=== PATIENT | female | born 1995 | race Caucasian/White ===

== ENCOUNTER 2018-01-19 22:30 | Emergency (ER) | payer OTHER ==
[2018-01-19 22:38] VITALS: BP 113/72; PULSE 140; BMI 22.8
--- NOTE | 2018-01-19 23:25 | PDOC ---
History of Present Illness - General Chief Complaint: Cold Symptoms Stated Complaint: COLD SYMPTOMS Time Seen by Provider: 01/19/18 23:07 History Source: Patient Exam Limitations: No Limitations - History of Present Illness Initial Comments: 01/19/18 23:22 22 y/o F with no significant PMH who presents to the ED c/o fever and myalgias over the past 5-6 hours. As per pt, this afternoon, she developed a subjective fever a/w nausea and one episode of NBNB emesis. During this time, pt also endorsed generalized myalgia, chills, and dry cough. Pt states that her sx have no alleviating or exacerbating factors. Pt denies SOB, or changes in urinary or bowel function. PMH: denies PsxH: denies meds: denies allergies: NKDA FH: non-contributory SH: denies cigarette, alcohol, or recreational drug use Past History - Past Medical History Allergies/Adverse Reactions: Allergies Allergy/AdvReac Type Severity Reaction Status Date / Time No Known Allergies Allergy Verified 01/19/18 22:34 Home Medications: Ambulatory Orders Azithromycin [Zithromax 250mg Tablets -] 250 mg PO UTDICT #6 tab 11/25/15 Promethazine HCl [Phenergan Plain 6.25 MG/5 ML -] 5 ml PO TID #60 ml 11/25/15 Oseltamivir Phosphate [Tamiflu] 75 mg PO BID #10 capsule 01/20/18 COPD: No Other medical history: Pt denies - Immunization History Immunization Up to Date: Yes - Suicide/Smoking/Psychosocial Hx Smoking History: Never smoked Have you smoked in the past 12 months: No Information on smoking cessation initiated: No Hx Alcohol Use: No Drug/Substance Use Hx: No Substance Use Type: None Review of Systems - Review of Systems Able to Perform ROS?: Yes Is the patient limited Japanese proficient: No Constitutional: Yes: Chills, Fever Respiratory: Yes: Cough ABD/GI: Yes: Nausea, Vomiting Musculoskeletal: Yes: Muscle Weakness All Other Systems: Reviewed and Negative *Physical Exam - Vital Signs Last Vital Signs Temp Pulse Resp BP Pulse Ox 102.2 F H 140 H 20 113/72 98 01/19/18 22:35 01/19/18 22:35 01/19/18 22:35 01/19/18 22:35 01/19/18 22:35 - Physical Exam General Appearance: Yes: Nourished, Mild Distress HEENT: positive: EOMI, MADDI Neck: positive: Supple Respiratory/Chest: positive: Lungs Clear, Normal Breath Sounds Cardiovascular: positive: Regular Rhythm, S1, S2, Tachycardia Vascular Pulses: Dorsalis-Pedis (R): 2+, Doralis-Pedis (L): 2+ Gastrointestinal/Abdominal: positive: Normal Bowel Sounds, Soft Lymphatic: positive: Tenderness, Other (+cervical lymphadenopathy) Musculoskeletal: positive: Normal Inspection Extremity: positive: Normal Range of Motion 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 Possible differentials include influenza, PNA, URI. Will get CXR to r/o infiltrates/PNA. Pt tachycardic will give 1L NS and repeat with 2nd L if still tachy. Will order the following CBC with diff CMP Urine HCG CXR r/o infiltrates UA Tylenol 1000mg IV x 1 1 L NS 01/20/18 01:49 Pt labs WNL for d/c *DC/Admit/Observation/Transfer Diagnosis at time of Disposition: Influenza - Discharge Dispostion Disposition: HOME Condition at time of disposition: Stable Admit: No - Prescriptions Prescriptions: Oseltamivir Phosphate [Tamiflu] 75 mg PO BID #10 capsule - Referrals - Patient Instructions Printed Discharge Instructions: How to Avoid a Cold or Flu Additional Instructions: You were recently in the emergency room for the flu. We recommend that you get plenty of rest and drink lots of fluids. While you were here, you had labs done which were normal. Your chest x-ray was also normal. Please take the medication Tamiflu 75mg - two pills a day, one in the morning, one in the evening - for the next 5 days. We are sending this prescription to your pharmacy. If you develop any chest pain, or shortness of breath, please go to the hospital. We hope you feel better soon. - Post Discharge Activity
--- NOTE | 2018-01-19 23:27 | PDOC ---
Attending Attestation - ED Attending Attestation I have performed the following: I have examined & evaluated the patient, The case was reviewed & discussed with the resident, I agree w/resident's findings & plan - HPI HPI: 01/20/18 05:36 Pt comes with cough cold and URI and flu like symptoms. SHe appears ill. She is tachycardic, febrile and dry. - Physicial Exam PE: 01/20/18 05:37 Agree with resident exam. - Medical Decision Making 01/20/18 05:37 Hydration; antipyretics. Pt feels better with treatment in the ER. CXR is normal. Pt will be treated with Tamiflu and she will be asked to follow with her PMD or with clinic as needed. Return for worsening symptoms.
[2018-01-19] MEDS ORDERED: SODIUM CHLORIDE 1,000 ML IV STA (23:29)
[2018-01-19] MEDS ORDERED: ACETAMINOPHEN 1000 MG/100 ML VIAL (NON FORMULARY) IVPB ONE (23:31)
[2018-01-19] MEDS ORDERED: ACETAMINOPHEN INJECTION 100 ML IVPB ONE (23:56)
[2018-01-20 00:33] LABS: BASO % 0.5 % (0-2.0); EOS % 0.1 % (0-4.5); HEMATOCRIT 35.7 % (32.4-45.2); HEMOGLOBIN 12.1 GM/dL (10.7-15.3); LYMPH % 13.1 % (8-40); MCH 28.8 pg (25.7-33.7); MCHC 33.9 g/dl (32.0-36.0); MEAN CELL VOLUME 84.8 fl (80-96); MEAN PLT VOLUME 8.6 fl (7.5-11.1); MONO % 7.3 % (3.8-10.2); PLATELET COUNT 234 K/MM3 (134-434); RBC 4.21 M/mm3 (3.60-5.2); RDW 13.5 % (11.6-15.6); WHITE BLOOD COUNT 8.5 K/mm3 (4.0-10.0)
[2018-01-20] MEDS ORDERED: OSELTAMIVIR PHOSPHATE 75 MG CAPSULE PO ONE (00:57)
[2018-01-20 01:16] LABS: ALBUMIN 4.1 g/dl (3.4-5.0); ALK PHOS 70 U/L (45-117); ANION GAP 12 (8-16); BILIRUBIN,TOTAL 1.2 mg/dL (0.2-1.0); BLOOD UREA NITROGEN 7 mg/dL (7-18); CALCIUM 8.9 mg/dL (8.5-10.1); CHLORIDE 102 mmol/L (98-107); CO2 22 mmol/L (21-32); CREATININE 0.7 mg/dL (0.55-1.02); GLUCOSE,RANDOM 103 mg/dL (74-106); POTASSIUM 3.6 mmol/L (3.5-5.1); SGOT/AST 13 U/L (15-37); SGPT/ALT 15 U/L (12-78); SODIUM 136 mmol/L (136-145); TOT PROT 7.7 g/dl (6.4-8.2)
[2018-01-20] MEDS ORDERED: OSELTAMIVIR PHOSPHATE 75 MG CAPSULE ONE (01:28)
[2018-01-20 01:46] LABS: URINE APPEARANCE CLEAR; URINE BILIRUBIN NEGATIVE (NEGATIVE); URINE BLOOD NEGATIVE (NEGATIVE); URINE COLOR LTYELLOW; URINE GLUCOSE (UA) NEGATIVE (NEGATIVE); URINE KETONE NEGATIVE (NEGATIVE); URINE LEUK ESTERASE NEGATIVE (NEGATIVE); URINE NITRITE NEGATIVE (NEGATIVE); URINE PROTEIN NEGATIVE (NEGATIVE)
[2018-01-20 02:03] VITALS: TEMP 98.6
== END 2018-01-20 02:33 | disposition home or self-care (01) ==
LOC: JER 22:30
PROC: 3E033NZ Introduction of Analgesics, Hypnotics, Sedatives into Peripheral Vein, Percutaneous Approach (ICD-10-PCS; principal; 2018-01-19)
DX: J11.2 Influenza due to unidentified influenza virus with gastrointestinal manifestations (principal)
CPT/HCPCS: 36415; 71046-TC-FY; 80053; 81003; 84703; 85025; 99281-25

== ENCOUNTER 2018-09-08 14:31 | Inpatient (IN) | payer MEDICARE, OTHER ==
--- NOTE | 2018-09-08 15:21 | PDOC ---
Rapid Medical Evaluation Chief Complaint: Pain, Acute Time Seen by Provider: 09/08/18 15:12 Medical Evaluation: Allergies Allergy/AdvReac Type Severity Reaction Status Date / Time No Known Allergies Allergy Verified 01/19/18 22:34 09/08/18 15:16 I have performed a brief in-person evaluation of this patient. The patient presents with a chief complaint of: abdominal pains, diarrhea, fever and vomiting for 2 weeks which has been worsening in the last 3 days. last fever 101.8F yesterday. no fever today Pertinent physical exam findings: A&O x 3. mild epigastric tenderness I have ordered the following: CBC/ CMP/UA/ HCG/urine culture The patient will proceed to the ED for further evaluation. Discharge Disposition - Diagnosis Diarrhea Qualifiers: Diarrhea type: unspecified type Qualified Code(s): R19.7 - Diarrhea, unspecified - Referrals - Patient Instructions - Post Discharge Activity
[2018-09-08 16:10] LABS: BASO % 0.7 % (0-2.0); EOS % 1.7 % (0-4.5); HEMOGLOBIN 12.5 GM/dL (10.7-15.3); LYMPH % 49.5 % (8-40); MCH 27.6 pg (25.7-33.7); MCHC 32.7 g/dl (32.0-36.0); MEAN CELL VOLUME 84.2 fl (80-96); MEAN PLT VOLUME 7.9 fl (7.5-11.1); MONO % 10.3 % (3.8-10.2); NEUT % 37.8 % (42.8-82.8); PLATELET COUNT 287 K/MM3 (134-434); RBC 4.52 M/mm3 (3.60-5.2); WHITE BLOOD COUNT 4.5 K/mm3 (4.0-10.0)
[2018-09-08 16:33] LABS: ALBUMIN 4.7 g/dl (3.4-5.0); ALK PHOS 59 U/L (45-117); ANION GAP 4 MMOL/L (8-16); BILIRUBIN,TOTAL 0.7 mg/dL (0.2-1); BLOOD UREA NITROGEN 9 mg/dL (7-18); CALCIUM 9.9 mg/dL (8.5-10.1); CHLORIDE 105 mmol/L (98-107); CO2 28 mmol/L (21-32); CREATININE 0.6 mg/dL (0.55-1.3); GLUCOSE,RANDOM 83 mg/dL (74-106); POTASSIUM 4.1 mmol/L (3.5-5.1); SGOT/AST 13 U/L (15-37); SGPT/ALT 21 U/L (13-61); SODIUM 137 mmol/L (136-145); TOT PROT 8.3 g/dl (6.4-8.2)
[2018-09-08 17:03] LABS: URINE APPEARANCE CLEAR; URINE BILIRUBIN NEGATIVE (<2.0 mg/dL); URINE COLOR LTYELLOW; URINE GLUCOSE (UA) NEGATIVE (NEGATIVE); URINE KETONE NEGATIVE (NEGATIVE); URINE LEUK ESTERASE NEGATIVE (NEGATIVE); URINE NITRITE NEGATIVE (NEGATIVE); URINE PROTEIN NEGATIVE (NEGATIVE); URINE UROBILINOGEN NEGATIVE mg/dL (0.2-1.0)
--- NOTE | 2018-09-08 17:56 | PDOC ---
History of Present Illness <Mirna Murray - Last Filed: 09/08/18 21:53> - History of Present Illness Initial Comments: 22yo F with PMH of chronic diarrhea presenting with bloody diarrhea, fever, chills, abdominal pain, nausea, and vomiting. Patient reports that she has had chronic diarrhea for the past 3 years. She has been worked up by a GI doctor whose name she does not remember in [place], but she has not seen him for some time. Patient presents today because she noticed blood in the toilet bowl and also when she was wiping after a bowel movement. She has had fever and chills for the past three days. Endorses abdominal pain that she has at baseline when she has a bowel movement. Denies sick contacts, recent travel, or unusual foods. <Maria C Martin - Last Filed: 09/10/18 00:33> - General Chief Complaint: Pain, Acute Stated Complaint: DIARRHEA Time Seen by Provider: 09/08/18 15:12 Past History <Mirna Murray - Last Filed: 09/08/18 21:53> - Past Medical History COPD: No - Immunization History Immunization Up to Date: Yes - Suicide/Smoking/Psychosocial Hx Smoking History: Never smoked Have you smoked in the past 12 months: No Hx Alcohol Use: No Drug/Substance Use Hx: No Substance Use Type: None <Maria C Martin - Last Filed: 09/10/18 00:33> - Past Medical History Allergies/Adverse Reactions: Allergies Allergy/AdvReac Type Severity Reaction Status Date / Time No Known Allergies Allergy Verified 01/19/18 22:34 Home Medications: Ambulatory Orders NK [No Known Home Medication] 09/08/18 Review of Systems - Review of Systems Comments:: Constitutional: +fever, +chills Cardiovascular: no chest pain, no palpitations Respiratory: no cough, no shortness of breath Gastrointestinal: +abdominal pain, +nausea, +vomiting, +diarrhea Genitourinary: no dysuria, no frequency Musculoskeletal: no myalgia, no arthralgia Skin: no rash, no itching Neurologic: no headache, no dizziness <Maria C Martin - Last Filed: 09/10/18 00:33> *Physical Exam - Vital Signs Last Vital Signs Temp Pulse Resp BP Pulse Ox 98.5 F 88 18 115/73 100 09/08/18 15:11 09/08/18 15:11 09/08/18 15:11 09/08/18 15:11 09/08/18 15:11 <Mirna Murray - Last Filed: 09/08/18 21:53> - Vital Signs Last Vital Signs Temp Pulse Resp BP Pulse Ox 98.5 F 88 18 115/73 100 09/08/18 15:11 09/08/18 15:11 09/08/18 15:11 09/08/18 15:11 09/08/18 15:11 - Physical Exam Comments: General: Awake, alert, and fully oriented, in no acute distress Head: no signs of trauma Eyes: EOMI, sclera anicteric ENT: Moist mucus membranes Neck: Normal ROM, supple Lungs: Lungs clear, Normal breath sounds Cardio: Regular rhythm, S1 and S2 present Abdomen: Tender to palpation in epigastrium with rebound, Soft, nondistended; No guarding, no masses Extremities: Normal range of motion, Distal pulses present SKIN: Warm, Dry, normal turgor Neurologic: Cranial nerves II through XII grossly intact. Normal speech <VeronicaMaria C - Last Filed: 09/10/18 00:33> ED Treatment Course - LABORATORY CBC & Chemistry Diagram: 09/08/18 15:47 09/08/18 15:47 - ADDITIONAL ORDERS Additional order review: Laboratory Results 09/08/18 09/08/18 09/08/18 18:56 16:45 16:45 Sodium Potassium Chloride Carbon Dioxide Anion Gap BUN Creatinine Creat Clearance w eGFR Random Glucose Lactic Acid 2.2 H* Calcium Total Bilirubin AST ALT Alkaline Phosphatase Total Protein Albumin Urine Color Ltyellow Urine Appearance Clear Urine pH 7.0 Ur Specific [place] 1.011 Urine Protein Negative Urine Glucose (UA) Negative Urine Ketones Negative Urine Blood Negative Urine Nitrite Negative Urine Bilirubin Negative Urine Urobilinogen Negative Ur Leukocyte Esterase Negative Urine HCG, Qual Negative 09/08/18 15:47 Sodium 137 Potassium 4.1 Chloride 105 Carbon Dioxide 28 Anion Gap 4 L BUN 9 Creatinine 0.6 Creat Clearance w eGFR > 60 Random Glucose 83 Lactic Acid Calcium 9.9 Total Bilirubin 0.7 AST 13 L ALT 21 Alkaline Phosphatase 59 Total Protein 8.3 H Albumin 4.7 Urine Color Urine Appearance Urine pH Ur Specific [place] Urine Protein Urine Glucose (UA) Urine Ketones Urine Blood Urine Nitrite Urine Bilirubin Urine Urobilinogen Ur Leukocyte Esterase Urine HCG, Qual 09/08/18 15:47 RBC 4.52 MCV 84.2 MCHC 32.7 RDW 14.0 MPV 7.9 Neutrophils % 37.8 L D Lymphocytes % 49.5 H D Monocytes % 10.3 H Eosinophils % 1.7 D Basophils % 0.7 - Medications Given in the ED: ED Medications Discontinued Medications Generic Name Dose Route Start Last Admin Trade Name Tito PRN Reason Stop Dose Admin Sodium Chloride 1,000 mls @ 1,000 mls/hr 09/08/18 18:58 09/08/18 19:50 Normal Saline - IV 09/08/18 19:57 1,000 mls/hr ASDIR STA Administration <Mirna Murray - Last Filed: 09/08/18 21:53> - LABORATORY CBC & Chemistry Diagram: 09/08/18 15:47 09/08/18 15:47 - ADDITIONAL ORDERS Additional order review: Laboratory Results 09/08/18 09/08/18 09/08/18 16:45 16:45 15:47 Sodium 137 Potassium 4.1 Chloride 105 Carbon Dioxide 28 Anion Gap 4 L BUN 9 Creatinine 0.6 Creat Clearance w eGFR > 60 Random Glucose 83 Calcium 9.9 Total Bilirubin 0.7 AST 13 L ALT 21 Alkaline Phosphatase 59 Total Protein 8.3 H Albumin 4.7 Urine Color Ltyellow Urine Appearance Clear Urine pH 7.0 Ur Specific [place] 1.011 Urine Protein Negative Urine Glucose (UA) Negative Urine Ketones Negative Urine Blood Negative Urine Nitrite Negative Urine Bilirubin Negative Urine Urobilinogen Negative Ur Leukocyte Esterase Negative Urine HCG, Qual Negative 09/08/18 15:47 RBC 4.52 MCV 84.2 MCHC 32.7 RDW 14.0 MPV 7.9 Neutrophils % 37.8 L D Lymphocytes % 49.5 H D Monocytes % 10.3 H Eosinophils % 1.7 D Basophils % 0.7 <Maria C Martin - Last Filed: 09/10/18 00:33> Medical Decision Making - Medical Decision Making 22yo F with PMH of chronic diarrhea presenting with bloody diarrhea, fever, chills, abdominal pain, nausea, and vomiting. -DDX includes but not limited to infectious diarrhea, colitis, carcinoma, hemorrhoid, crohns -Patient declined rectal exam. Explained the benefits and risks and she voiced understanding. -Labs: no leukocytosis or anemia, urinalysis negative, upreg negative -pending lactate -CT abdomen/pelvis with contrast -IV fluids Patient signed out to Dr. Murray 09/08/18 19:48 <Maria C Martin - Last Filed: 09/10/18 00:33> *DC/Admit/Observation/Transfer - Discharge Dispostion Decision to Admit order: Yes <Mirna Murray - Last Filed: 09/08/18 21:53> <Maria C Martin - Last Filed: 09/10/18 00:33> Diagnosis at time of Disposition: Diarrhea Qualifiers: Diarrhea type: unspecified type Qualified Code(s): R19.7 - Diarrhea, unspecified - Discharge Dispostion Disposition: HOME Condition at time of disposition: Stable
[2018-09-08] MEDS ORDERED: SODIUM CHLORIDE 1,000 ML IV STA (18:58)
--- NOTE | 2018-09-08 20:43 | PDOC ---
*Physical Exam - Vital Signs Last Vital Signs Temp Pulse Resp BP Pulse Ox 98.5 F 88 18 115/73 100 09/08/18 15:11 09/08/18 15:11 09/08/18 15:11 09/08/18 15:11 09/08/18 15:11 - Physical Exam Comments: 09/08/18 21:07 GENERAL: Awake, alert, and fully oriented, in no acute distress HEAD: No signs of trauma, normocephalic, atraumatic EYES: EOMI, sclera anicteric, conjunctiva clear ENT: oropharynx clear without exudates. Moist mucosa NECK: Normal ROM, supple LUNGS: No distress, speaks full sentences, clear to auscultation bilaterally HEART: Regular rate and rhythm, normal S1 and S2, no murmurs, rubs or gallops, peripheral pulses normal and equal bilaterally. ABDOMEN: Soft, + R lower quadrant tenderness to palpation, normoactive bowel sounds. No guarding, no rebound. No masses EXTREMITIES : Normal inspection, Normal range of motion, no edema. No clubbing or cyanosis. NEUROLOGICAL: Cranial nerves II through XII grossly intact. Normal speech, no focal sensorimotor deficits SKIN: Warm, Dry, normal turgor, no rashes or lesions noted ED Treatment Course - LABORATORY CBC & Chemistry Diagram: 09/08/18 15:47 09/08/18 15:47 - ADDITIONAL ORDERS Additional order review: Laboratory Results 09/08/18 09/08/18 09/08/18 16:45 16:45 15:47 Sodium 137 Potassium 4.1 Chloride 105 Carbon Dioxide 28 Anion Gap 4 L BUN 9 Creatinine 0.6 Creat Clearance w eGFR > 60 Random Glucose 83 Calcium 9.9 Total Bilirubin 0.7 AST 13 L ALT 21 Alkaline Phosphatase 59 Total Protein 8.3 H Albumin 4.7 Urine Color Ltyellow Urine Appearance Clear Urine pH 7.0 Ur Specific [place] 1.011 Urine Protein Negative Urine Glucose (UA) Negative Urine Ketones Negative Urine Blood Negative Urine Nitrite Negative Urine Bilirubin Negative Urine Urobilinogen Negative Ur Leukocyte Esterase Negative Urine HCG, Qual Negative 09/08/18 15:47 RBC 4.52 MCV 84.2 MCHC 32.7 RDW 14.0 MPV 7.9 Neutrophils % 37.8 L D Lymphocytes % 49.5 H D Monocytes % 10.3 H Eosinophils % 1.7 D Basophils % 0.7 - Medications Given in the ED: ED Medications Discontinued Medications Generic Name Dose Route Start Last Admin Trade Name Tito PRN Reason Stop Dose Admin Sodium Chloride 1,000 mls @ 1,000 mls/hr 09/08/18 18:58 09/08/18 19:50 Normal Saline - IV 09/08/18 19:57 1,000 mls/hr ASDIR STA Administration Medical Decision Making - Medical Decision Making 09/08/18 20:38 Pt signed out by Dr. Martin. In short this patient has 3 years of chronic diarrhea but now with 2 weeks of bright red diarrhea that is more than streaking but does not fill the bowl and NBNB vomiting and 1 day of chills and subjective fever. The pt denies recent travel, fevers, any other people with similar symptoms or new pets. DDX including but limited to: IBS vs fissure vs hemorrhoid vs diverticular dz vs Crohns vs UC vs appendicitis ED Course: As patient refuses rectal exam, difficult to r/o hemorrhoids On my exam patient with RLQ tenderness with mild + Rovsing, r/o appendicitis Pending abd CT and lactic acid. Will consult GI. 09/08/18 20:49 lactic acid 2.2 Second liter NS 09/08/18 21:[address]: 1.4cm L renal complex cyst vs solid nodule gastric distention 2/2 fluid and particulate material - recent meal vs gastroparesis vs gastric outlet obstruction colonic fecal retention. Patient reports that she ate dinner 1 hour prior to getting the CT 09/08/18 21:23 *DC/Admit/Observation/Transfer Diagnosis at time of Disposition: Diarrhea Qualifiers: Diarrhea type: unspecified type Qualified Code(s): R19.7 - Diarrhea, unspecified - Referrals - Patient Instructions - Post Discharge Activity
[2018-09-08] MEDS ORDERED: SODIUM CHLORIDE 1,000 ML IV SCH (20:45)
--- NOTE | 2018-09-08 20:46 | PDOC ---
Attending Attestation - Resident Resident Name: Maria C Martin - ED Attending Attestation I have performed the following: I have examined & evaluated the patient, The case was reviewed & discussed with the resident, I agree w/resident's findings & plan, Exceptions are as noted - HPI HPI: 09/08/18 20:38 22-year-old female patient with history of chronic diarrhea presents with bloody diarrhea for last 2 and half weeks. Patient reports that she's been having some upper abdominal pain solidity since. In the last 2 days she's been endorsing tactile fevers. Reports some nausea. Lately she noticed some small amounts of blood mixed in with her stool. Some on wiping. She does not know she has a history of diverticulosis or hemorrhoids. Initially, the patient had came to the ER for further evaluation. - Physicial Exam PE: 09/08/18 20:38 GENERAL: Awake, alert, and fully oriented, in no acute distress HEAD: No signs of trauma EYES: EOMI, sclera anicteric, conjunctiva clear ENT: Auricles normal inspection, hearing grossly normal, nares patent, Moist mucosa NECK: Normal ROM, supple, ABDOMEN: Soft, TTP epigastric. No guarding, no rebound. No masses EXTREMITIES: Normal range of motion, no edema. No clubbing or cyanosis. No cords, erythema, or tenderness NEUROLOGICAL: Cranial nerves II through XII grossly intact. Normal speech SKIN: Warm, Dry, normal turgor, no rashes or lesions noted. - Medical Decision Making 09/08/18 20:38 Vital Signs Temp Pulse Resp BP Pulse Ox 98.5 F 88 18 115/73 100 09/08/18 15:11 09/08/18 15:11 09/08/18 15:11 09/08/18 15:11 09/08/18 15:11 This is a 22-year-old patient with chronic GI problems. Differential includes irritable bowel syndrome, irritable bowel disease (though with a reportedly negative colonoscopy and encoscopy), bleeding diverticula, internal hemorrhoids , colitis. Labs are reassuring but will need a CAT scan and pelvis to reassess. Once the workup is complete, we'll consult GI for further disposition. 09/08/18 21:56 CBC, BMP 09/08/18 15:47 09/08/18 15:47 CMP Sodium 137 mmol/L (136-145) 09/08/18 15:47 Potassium 4.1 mmol/L (3.5-5.1) 09/08/18 15:47 Chloride 105 mmol/L (98-107) 09/08/18 15:47 Carbon Dioxide 28 mmol/L (21-32) 09/08/18 15:47 Anion Gap 4 MMOL/L (8-16) L 09/08/18 15:47 BUN 9 mg/dL (7-18) 09/08/18 15:47 Creatinine 0.6 mg/dL (0.55-1.3) 09/08/18 15:47 Creat Clearance w eGFR > 60 (>60) 09/08/18 15:47 Random Glucose 83 mg/dL (74-106) 09/08/18 15:47 Lactic Acid 2.2 mmol/L (0.4-2.0) H* 09/08/18 18:56 Calcium 9.9 mg/dL (8.5-10.1) 09/08/18 15:47 Total Bilirubin 0.7 mg/dL (0.2-1) 09/08/18 15:47 AST 13 U/L (15-37) L 09/08/18 15:47 ALT 21 U/L (13-61) 09/08/18 15:47 Alkaline Phosphatase 59 U/L (45-117) 09/08/18 15:47 Total Protein 8.3 g/dl (6.4-8.2) H 09/08/18 15:47 Albumin 4.7 g/dl (3.4-5.0) 09/08/18 15:47 CAT scan demonstrates no acute findings. There is some moderate colonic fecal retention. Given that we are unable to find the source of her 2 weeks of GI bleeding, client experience specialist Dr. Mixon was consulted. We will admit the patient to the hospital.
[2018-09-09] MEDS ORDERED: LACTATED RINGERS SOLUTION 1,000 ML IV SCH (00:30)
--- NOTE | 2018-09-09 00:46 | HP ---
CHIEF COMPLAINT: GI bleed PCP: none HISTORY OF PRESENT ILLNESS: 22 year old female with a history of chronic diarrhea presents of the hospital for around 2 weeks of diarrhea accompanied by bright red blood per rectum. She reports that the bleeding is mild, notes that the blood is surrounding the stool and also in the toilet bowl. States that it does not cover the entirety of the toilet water. States that she had 4 bowl movements earlier in the day and around 4-5 BMs each day over the past 2 weeks. Reports that she has not needed to move her bowls in several hours. Also reports subjective fever that began 1 week ago and 3 episodes of non-bloody vomiting today only. States that she has not been as hungry over the past 2 weeks and reports 10lbs weight loss during this time. Patient had a colonoscopy and endoscopy at [place] in 2014, which she states were both "normal", and she reports she was told she had "lactose intolerance". Reports her last menstrual period ending 3 days ago. Denies fevers, chills, chest pain, shortness of breath. ER course was notable for: (1) Lactate 2.2 (2) CT abd/pelvis normal (3) Recent Travel: denies PAST MEDICAL HISTORY: denies PAST SURGICAL HISTORY: denies LKMP: 3 days ago, not currently in menses Social History: Smoking: denies ever smoking Alcohol: denies Drugs: denies Family History: denies any family history of cardiac disease, diabetes, stroke or cancer. Allergies No Known Allergies Allergy (Verified 01/19/18 22:34) HOME MEDICATIONS: Home Medications Medication Instructions Recorded NK [No Known Home Medication] 09/08/18 REVIEW OF SYSTEMS CONSTITUTIONAL: Absent: fever, chills, diaphoresis, generalized weakness, malaise, loss of appetite, weight change HEENT: Absent: rhinorrhea, nasal congestion, throat pain, throat swelling, difficulty swallowing, mouth swelling, ear pain, eye pain, visual changes CARDIOVASCULAR: Absent: chest pain, syncope, palpitations, irregular heart rate, lightheadedness , peripheral edema RESPIRATORY: Absent: cough, shortness of breath, dyspnea with exertion, orthopnea, wheezing, stridor, hemoptysis GASTROINTESTINAL:abdominal pain, diarrhea, hematochezia Absent: abdominal distension, nausea, vomiting, constipation, melena, GENITOURINARY: Absent: dysuria, frequency, urgency, hesitancy, hematuria, flank pain, genital pain MUSCULOSKELETAL: Absent: myalgia, arthralgia, joint swelling, back pain, neck pain SKIN: Absent: rash, itching, pallor HEMATOLOGIC/IMMUNOLOGIC: Absent: easy bleeding, easy bruising, lymphadenopathy, frequent infections ENDOCRINE: Absent: unexplained weight gain, unexplained weight loss, heat intolerance, cold intolerance NEUROLOGIC: Absent: headache, focal weakness or paresthesias, dizziness, unsteady gait, seizure, mental status changes, bladder or bowel incontinence PSYCHIATRIC: Absent: anxiety, depression, suicidal or homicidal ideation, hallucinations. PHYSICAL EXAMINATION Vital Signs - 24 hr 09/08/18 15:11 Temperature 98.5 F Pulse Rate 88 Respiratory 18 Rate Blood Pressure 115/73 O2 Sat by Pulse 100 Oximetry (%) GENERAL: A&Ox3, no acute distress EYES: PERRLA, EOMI ENT: Moist mucus membranes NECK: No JVD LUNGS: CTA, no wheezes HEART: RRR, no murmurs ABDOMEN: Soft, mildly tender to palpation diffusely, BS present, rectal exam refused by patient MUSCULOSKELETAL: No CVA Tenderness EXTREMITIES: 2+ pulses, no edema. NEUROLOGICAL: Cranial nerves II-XII intact. Laboratory Results - last 24 hr 09/08/18 09/08/18 09/08/18 15:47 15:47 16:45 WBC 4.5 RBC 4.52 Hgb 12.5 Hct 38.0 MCV 84.2 MCH 27.6 MCHC 32.7 RDW 14.0 Plt Count 287 D MPV 7.9 Absolute Neuts (auto) 1.7 Neutrophils % 37.8 L D Lymphocytes % 49.5 H D Monocytes % 10.3 H Eosinophils % 1.7 D Basophils % 0.7 Nucleated RBC % 0 Sodium 137 Potassium 4.1 Chloride 105 Carbon Dioxide 28 Anion Gap 4 L BUN 9 Creatinine 0.6 Creat Clearance w eGFR > 60 Random Glucose 83 Lactic Acid Calcium 9.9 Total Bilirubin 0.7 AST 13 L ALT 21 Alkaline Phosphatase 59 Total Protein 8.3 H Albumin 4.7 Urine Color Ltyellow Urine Appearance Clear Urine pH 7.0 Ur Specific Industry 1.011 Urine Protein Negative Urine Glucose (UA) Negative Urine Ketones Negative Urine Blood Negative Urine Nitrite Negative Urine Bilirubin Negative Urine Urobilinogen Negative Ur Leukocyte Esterase Negative Urine HCG, Qual 10/19/18 10/19/18 16:45 18:56 WBC RBC Hgb Hct MCV MCH MCHC RDW Plt Count MPV Absolute Neuts (auto) Neutrophils % Lymphocytes % Monocytes % Eosinophils % Basophils % Nucleated RBC % Sodium Potassium Chloride Carbon Dioxide Anion Gap BUN Creatinine Creat Clearance w eGFR Random Glucose Lactic Acid 2.2 H* Calcium Total Bilirubin AST ALT Alkaline Phosphatase Total Protein Albumin Urine Color Urine Appearance Urine pH Ur Specific Industry Urine Protein Urine Glucose (UA) Urine Ketones Urine Blood Urine Nitrite Urine Bilirubin Urine Urobilinogen Ur Leukocyte Esterase Urine HCG, Qual Negative ASSESSMENT/PLAN: 22 year old female with a history of chronic diarrhea presents of the hospital for around 2 weeks of diarrhea accompanied by bright red blood per rectum. #Diarrhea with Blood per rectum: appears to be clinically improving based on decreased frequency of stools; etiologies include hemorrhoids, anal fissures, AVMs, inflammatory bowel disease. Patient is hemodynamically stable and CT negative for acute disease. -will keep NPO for now -monitor H&H in AM -fluid resuscitation with lactated ringers @ 100cc/hr -protonix -GI consulted, Dr. Hernadez -will possibly need scope either this admission or outpatient -trend lactate -will attempt to get prior endoscopy records from [place] #Hyperlactatemia: could be related to diarrheal illness; lactate only 2.2 on admission; not overt acidosis -repeat lactate in several hours and see if decreasing #FEN -LR @ 100cc/hr 1 bag -lytes normal -NPO overnight, advance diet as tolerated in AM #Prophylaxis -SCDs in setting of acute GI bleed #Disposition -admit obs Visit type - Emergency Visit Emergency Visit: Yes ED Registration Date: 09/08/18 Care time: The patient presented to the Emergency Department on the above date and was hospitalized for further evaluation of their emergent condition. - New Patient This patient is new to me today: Yes Date on this admission: 09/09/18 - Critical Care Critical Care patient: No
--- NOTE | 2018-09-09 03:30 | PN ---
Teaching Attending Note Name of Resident: Faisal Eubanks ATTENDING PHYSICIAN STATEMENT I saw and evaluated the patient. Chart, data, imaging reviewed. I reviewed the resident's note and discussed the case with the resident. I agree with the resident's findings and plan as documented. SUBJECTIVE: 22 year old female with a history of chronic diarrhea presents of the hospital for around 2 weeks of diarrhea accompanied by bright red blood per rectum. She reports that the bleeding is mild, notes that the blood is surrounding the stool and also in the toilet bowl. Patient denied an anal sex, no history of STDs. No family history of IBD. She had colonoscopy in 2014 which was reportedly normal as per patient. OBJECTIVE: Last Vital Signs Temp Pulse Resp BP Pulse Ox 97.9 F 81 16 98/44 L 100 09/09/18 03:04 09/09/18 03:04 09/09/18 03:04 09/09/18 03:04 09/09/18 03:04 General- nad, aaox3 heent- at, nc neck- supple cv -s1+s2+rrr chest- clear abdomen- nontender, BS+ ext-no pedal edema patient refused rectal exam Abnormal Lab Results 09/08/18 09/08/18 09/08/18 15:47 15:47 18:56 Neutrophils % 37.8 L D Lymphocytes % 49.5 H D Monocytes % 10.3 H Anion Gap 4 L Lactic Acid 2.2 H* AST 13 L Total Protein 8.[address] abdomen/pelvis reviewed- left renal pole cyst ASSESSMENT AND PLAN: #Bright red blood per rectum+ diarrhea- differential diagnosis includes but not limited to IBD, hemorroids, AV malformation, infectious process. Refused ALEXIS so diffcult to assess. Currently hemodynamically stable. H,H stable. -observation -IV fluid hydration -type and screen -GI consult -avoid heparin sc -avoid aspirin -avoid other nsaids
[2018-09-09 04:15] VITALS: BMI 25.7
--- NOTE | 2018-09-09 09:19 | CON.GI ---
Consult Consult Specialty:: GI Referred by:: Hospitalist Service Reason for Consultation:: Diarrhea with rectal bleeding - History of Present Illness Chief Complaint: Diarrhea History of Present Illness: 22F admitted for evaluation of diarrhea and rectal bleeding. She describes chronic diarrhea. she has noticed blood tinged stool for 2 weeks. She describes having chills. She denies recent travel, antibiotic use, sick contacts. She describes a 7 pound weight loss in the last [address] scan failed to reveal colitis and showed fecal retention. She states having had a colonoscopy in 2015 at [facility] but cannot remember the name of the physician who performed it. She bvelieves that it was normal. She has not had a bowel movement since admission. She denies OTC NSAID use. Her differential is abnormal on initial CBC and she refused morning labs. She refused rectal exam in the ED. There is no family history of colorectal cancer or other GI malignancy. There is no family history of IBD or celiac disease. 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year[place] 2008 History of Recent Travel: No Home Medications - Allergies Allergies/Adverse Reactions: Allergies Allergy/AdvReac Type Severity Reaction Status Date / Time No Known Allergies Allergy Verified 01/19/18 22:34 - Home Medications Home Medications: Ambulatory Orders NK [No Known Home Medication] 09/08/18 Family Disease History - Family Disease History Family Disease History: Other: Father (: 21: Accident), Mother (Alive: healthy), Brother (1, healthy), Sister (1, healthy), Son (None), Daughter (None) Other Family History: No family history of colorectal cancer or other GI malignancy Review of Systems - Review of Systems Constitutional: reports: Chills Cardiovascular: denies: Chest Pain Respiratory: denies: Cough, SOB Gastrointestinal: reports: Diarrhea, Rectal Bleeding. denies: Abdominal Pain, Constipation Physical Exam-GI Vital Signs: Vital Signs Temperature 98 F 09/09/18 04:04 Pulse Rate 78 09/09/18 04:04 Respiratory Rate 20 09/09/18 04:20 Blood Pressure 109/57 L 09/09/18 04:04 O2 Sat by Pulse Oximetry (%) 100 09/09/18 04:20 Constitutional: Yes: Calm Eyes: No: Sclera Icterus Cardiovascular: Yes: Regular Rate and Rhythm. No: Murmur Respiratory: Yes: CTA Bilaterally Gastrointestinal Inspection: No: Distention, Scars ...Auscultate: Yes: Normoactive Bowel Sounds ...Palpate: No: Hepatomegaly, Splenomegaly, Tenderness ...Percussion: No: Tympanitic ...Rectal Exam: Yes: Deferred (Refused by patient) Edema: No (No LE edema) Neurological: Yes: Alert Labs: CBC, BMP 09/08/18 15:47 09/08/18 15:47 Imaging - Results Cat Scan: Report Reviewed, Image Reviewed Problem List - Problems (1) Diarrhea Assessment/Plan: No diarrhea or rectal bleeding since admission. CT scan shows fecal retention as opposed to liquid stool burden that would be suggestive of a diarrheal illness. ? paradoxical diarrhea, however she denies constipation history. Refused rectal exam so physical exam was limited. Advise: Monitoring No need to keep NPO as no emergent procedures are being performed If no diarrhea, rectal bleeding and tolerating PO, continued evaluation as outpatient If diarrhea: stool for O&P, culture, C. Diff Will need abnormal differential and elevated total protein evaluated further per medicine team. Repeat labs today if she allows including CRP Code(s): R19.7 - DIARRHEA, UNSPECIFIED Qualifiers: Diarrhea type: unspecified type Qualified Code(s): R19.7 - Diarrhea, unspecified
[2018-09-09 09:31] VITALS: BP 126/61; PULSE 70; TEMP 98.2
[2018-09-09] MEDS ORDERED: PANTOPRAZOLE 40 MG TABLET (FP) PO SCH (10:00)
--- NOTE | 2018-09-09 10:59 | DS ---
Physical Exam: SUBJECTIVE: Patient seen and examined. states her abdominal pain has resolved. has not noted any more BRBPR but also had no BM since arrival. had EGD/ COlonoscopy in 2015 for similiar complaints that was normal. requesting to eat. denies Cp, SOB< fever, chills, N/V/C/D also reports irregular menses and that is has been heavier than usual OBJECTIVE: Vital Signs Period Temp Pulse Resp BP Sys/[place] Pulse Ox Last 24 Hr 97.9 F-98.5 F 70-88 16-20 98-126/44-73 100-100 PHYSICAL EXAM GENERAL: The patient is awake, alert, and fully oriented, in no acute distress. HEAD: Normal with no signs of trauma. EYES: PERRL, extraocular movements intact, sclera anicteric, conjunctiva clear. ENT: Ears normal, nares patent, oropharynx clear without exudates, moist mucous membranes. NECK: Trachea midline, full range of motion, supple. LUNGS: Breath sounds equal, clear to auscultation bilaterally, no wheezes, no crackles, no accessory muscle use. HEART: Regular rate and rhythm, S1, S2 without murmur, rub or gallop. ABDOMEN: Soft, nontender, nondistended, normoactive bowel sounds, no guarding, no rebound, no hepatosplenomegaly, no masses. EXTREMITIES: 2+ pulses, warm, well-perfused, no edema. NEUROLOGICAL: Cranial nerves II through XII grossly intact. Normal speech, gait not observed. PSYCH: Normal mood, normal affect. SKIN: Warm, dry, normal turgor, no rashes or lesions noted. LABS Laboratory Results - last 24 hr 09/08/18 09/08/18 09/08/18 15:47 15:47 16:45 WBC 4.5 RBC 4.52 Hgb 12.5 Hct 38.0 MCV 84.2 MCH 27.6 MCHC 32.7 RDW 14.0 Plt Count 287 D MPV 7.9 Absolute Neuts (auto) 1.7 Neutrophils % 37.8 L D Lymphocytes % 49.5 H D Monocytes % 10.3 H Eosinophils % 1.7 D Basophils % 0.7 Nucleated RBC % 0 Sodium 137 Potassium 4.1 Chloride 105 Carbon Dioxide 28 Anion Gap 4 L BUN 9 Creatinine 0.6 Creat Clearance w eGFR > 60 Random Glucose 83 Lactic Acid Calcium 9.9 Total Bilirubin 0.7 AST 13 L ALT 21 Alkaline Phosphatase 59 Total Protein 8.3 H Albumin 4.7 Urine Color Ltyellow Urine Appearance Clear Urine pH 7.0 Ur Specific [place] 1.011 Urine Protein Negative Urine Glucose (UA) Negative Urine Ketones Negative Urine Blood Negative Urine Nitrite Negative Urine Bilirubin Negative Urine Urobilinogen Negative Ur Leukocyte Esterase Negative Urine HCG, Qual 09/08/18 09/08/18 09/09/18 16:45 18:56 03:16 WBC RBC Hgb Hct MCV MCH MCHC RDW Plt Count MPV Absolute Neuts (auto) Neutrophils % Lymphocytes % Monocytes % Eosinophils % Basophils % Nucleated RBC % Sodium Potassium Chloride Carbon Dioxide Anion Gap BUN Creatinine Creat Clearance w eGFR Random Glucose Lactic Acid 2.2 H* 1.1 Calcium Total Bilirubin AST ALT Alkaline Phosphatase Total Protein Albumin Urine Color Urine Appearance Urine pH Ur Specific [place] Urine Protein Urine Glucose (UA) Urine Ketones Urine Blood Urine Nitrite Urine Bilirubin Urine Urobilinogen Ur Leukocyte Esterase Urine HCG, Qual Negative HOSPITAL COURSE: Date of Admission:09/08/18 Date of Discharge: 09/09/18 Admitting diagnosis: BRBPR, diarrhea Pre hospital course 22 year old female with a history of chronic diarrhea presents of the hospital for around 2 weeks of diarrhea accompanied by bright red blood per rectum. She reports that the bleeding is mild, notes that the blood is surrounding the stool and also in the toilet bowl. States that it does not cover the entirety of the toilet water. States that she had 4 bowl movements earlier in the day and around 4-5 BMs each day over the past 2 weeks. Reports that she has not needed to move her bowls in several hours. Also reports subjective fever that began 1 week ago and 3 episodes of non-bloody vomiting today only. States that she has not been as hungry over the past 2 weeks and reports 10lbs weight loss during this time. Patient had a colonoscopy and endoscopy at [place] in 2014, which she states were both "normal", and she reports she was told she had "lactose intolerance". Reports her last menstrual period ending 3 days ago. Denies fevers, chills, chest pain, shortness of breat Subsequent hospital course Admitted to medicine. started NPO and IVF. CT scan was done showing fecal retention and renal cyst. pt refused ALEXIS that was offered by multiple providers. refused labs to be repeated. discussed with her in detail indication for repeating labs and a physical exam of her rectum and reasons why which she continued to refuse. diet was advanced and tolerated. d/c home with GI follow up. ROTARY DRIER referal given for metorrhagia Minutes to complete discharge: 40 Discharge Summary Reason For Visit: DIARRHEA Current Active Problems BRBPR (bright red blood per rectum) (Acute) Diarrhea (Acute) Condition: Stable - Instructions Diet, Activity, Other Instructions: You were admitted to the hospital due to your reports of rectal bleeding. Your blood counts were stable and you did not note any further bleeding here. You reported having diarrhea however on the CT scan of your abdomen it appeared you were constipated. It was also seen that you had a cyst on one of your kidneys. Follow up with your primary care doctor for ultrasound. You also reported having an irregular menses cycle. You should schedule an appointment with a biometrics instructor for further workup and evaluation. IF you do not have one information on one has been provided. Would recommend following up with either your own GI specialist or the one that you saw here. The information on the one you saw has been provided. They may want to do more testing. Follow up with your primary care doctor next week. They can repeat your blood counts if you continued to have rectal bleeding Return to the ER if you have large amount of rectal bleeding Referrals: Vinny Davila DO [Staff Physician] - Milton Parker MD [Staff Physician] - Disposition: HOME - Home Medications Comprehensive Discharge Medication List: Ambulatory Orders NK [No Known Home Medication] 09/08/18 This patient is new to me today: Yes Date on this admission: 09/09/18 Emergency Visit: Yes ED Registration Date: 09/08/18 Care time: The patient presented to the Emergency Department on the above date and was hospitalized for further evaluation of their emergent condition. Critical Care patient: No - Discharge Referral Referred to [facility] Med [facility].C[facility] No
--- NOTE | 2018-09-09 18:02 | EKG ---
Test Reason : Blood Pressure : / mmHG Vent. Rate : 085 BPM Atrial Rate : 085 BPM P-R Int : 160 ms QRS Dur : 070 ms QT Int : 360 ms P-R-T Axes : 035 081 055 degrees QTc Int : 428 ms NORMAL SINUS RHYTHM NORMAL ECG NO PREVIOUS ECGS AVAILABLE Confirmed by MARCOS GALARZA MD ([id number]) on 09/09/2018 6:02:22 PM Referred By: Confirmed By:MARCOS GALARZA MD
== END 2018-09-09 12:08 | disposition home or self-care (01) | DRG 253 ==
LOC: JER 14:31 → JERBED 21:54 → UNDOADMIN 09-09 01:06 → J6S 09-09 03:25
PROVIDERS: ADMIT Internal Medicine; ATTEND Internal Medicine
DX: K62.5 Hemorrhage of anus and rectum (principal); R19.7 Diarrhea, unspecified; K59.09 Other constipation
CPT/HCPCS: 36415; 74177-TC; 80053; 81003; 83605; 84703; 85025; 87086; 93005; 93010; 99284-25; J7030

== ENCOUNTER 2018-10-23 13:32 | Emergency (ER) | payer MEDICARE, OTHER ==
[2018-10-23 13:39] VITALS: BP 124/73; PULSE 95; TEMP 98.7; BMI 25.1
--- NOTE | 2018-10-23 13:41 | PDOC ---
Rapid Medical Evaluation Chief Complaint: Pain Time Seen by Provider: 10/23/18 13:38 Medical Evaluation: Allergies Allergy/AdvReac Type Severity Reaction Status Date / Time No Known Allergies Allergy Verified 01/19/18 22:34 10/23/18 13:39 I have performed a brief in-person evaluation of this patient. biba The patient presents with a chief complaint of:tight spasm to right shoulder and neck SINCE ~ 2 HOURS AGO. nO RECENT INJURY OR ILLNESS . Pertinent physical exam findings: tight spasm to muscles of right side/ SCM I have ordered the following: UCG The patient will proceed to the ED for further evaluation., 10/23/18 13:40
--- NOTE | 2018-10-23 14:25 | PDOC ---
History of Present Illness - General Chief Complaint: Pain Stated Complaint: NECK PAIN Time Seen by Provider: 10/23/18 13:38 - History of Present Illness Initial Comments: 10/23/18 14:22 22-year-old healthy female without comorbidities presents for evaluation of atraumatic back pain times one day without associated symptoms. Pain is described as sharp exacerbated with motion of the neck side rotation relieved with rest without radiation. Past History - Past Medical History Allergies/Adverse Reactions: Allergies Allergy/AdvReac Type Severity Reaction Status Date / Time No Known Allergies Allergy Verified 10/23/18 13:40 Home Medications: Ambulatory Orders Cyclobenzaprine HCl [Flexeril 10 mg] 10 mg PO HS PRN #10 tablet 10/23/18 Ibuprofen [Motrin -] 600 mg PO TID #30 tablet 10/23/18 COPD: No - Immunization History Immunization Up to Date: Yes - Suicide/Smoking/Psychosocial Hx Smoking History: Unknown if ever smoked Have you smoked in the past 12 months: No Hx Alcohol Use: No Drug/Substance Use Hx: No Substance Use Type: None Review of Systems - Review of Systems Constitutional: No: Fever Musculoskeletal: Yes: Neck Pain *Physical Exam - Vital Signs Last Vital Signs Temp Pulse Resp BP Pulse Ox 98.7 F 95 H 18 124/73 100 10/23/18 13:38 10/23/18 13:38 10/23/18 13:38 10/23/18 13:38 10/23/18 13:38 - Physical Exam Comments: 10/23/18 14:23 Cervical spine skin color and temperature are normal, range of motion is limited. There is no midline tenderness. Moderate right-sided trapezial, paracervical, levator scapula tenderness and spasm. 5 out of 5 strength in bilateral upper extremity is without gross sensorimotor deficits. She's neurovascularly intact. Moderate Sedation - Procedure Monitoring Vital Signs: Procedure Monitoring Vital Signs Temperature 98.7 F 10/23/18 13:38 Pulse Rate 95 H 10/23/18 13:38 Respiratory Rate 18 10/23/18 13:38 Blood Pressure 124/73 10/23/18 13:38 O2 Sat by Pulse Oximetry (%) 100 10/23/18 13:38 ED Treatment Course - ADDITIONAL ORDERS Additional order review: Laboratory Results 10/23/18 13:48 Urine HCG, Qual Negative Medical Decision Making - Medical Decision Making 10/23/18 14:23 Patient refused a shot of Toradol. I'll send and Flexeril and Motrin and have her follow-up with spine surgery *DC/Admit/Observation/Transfer Diagnosis at time of Disposition: Cervical strain, acute - Discharge Dispostion Disposition: HOME Condition at time of disposition: Stable Decision to Admit order: No - Referrals Referrals: Gutierrez Lees MD [Staff Physician] - - Patient Instructions Printed Discharge Instructions: DI for Cervical Muscle Strain Additional Instructions: Please take the anti-inflammatory as directed it's one tablet 3 times a day with food discontinue the medication if it bothers her stomach. The muscle relaxers one tablet before bedtime and will make you sleepy. Return to the emergency room should symptoms worsen or go unresolved. Follow-up with spine surgery in 2-3 days for further evaluation and treatment options. - Post Discharge Activity
== END 2018-10-23 14:30 | disposition home or self-care (01) ==
LOC: JERFT 13:32
DX: S16.1XXA Strain of muscle, fascia and tendon at neck level, initial encounter (principal); X58.XXXA Exposure to other specified factors, initial encounter; Y93.89 Activity, other specified; Y92.89 Other specified places as the place of occurrence of the external cause
CPT/HCPCS: 84703; 99281-25

== ENCOUNTER 2021-04-28 08:35 | Inpatient (IN) | payer OTHER ==
[2021-04-28 10:10] LABS: BASO % 0.3 % (0-2.0); EOS % 1.1 % (0-4.5); HEMATOCRIT 33.5 % (32.4-45.2); HEMOGLOBIN 11.4 GM/dL (10.7-15.3); LYMPH % 21.2 % (8-40); MCH 28.9 pg (25.7-33.7); MCHC 34.1 g/dl (32.0-36.0); MEAN PLT VOLUME 8.8 fl (7.5-11.1); NEUT % 67.4 % (42.8-82.8); PLATELET COUNT 248 K/MM3 (134-434); RBC 3.94 M/mm3 (3.60-5.2); RDW 13.5 % (11.6-15.6); WHITE BLOOD COUNT 7.3 K/mm3 (4.0-10.0)
[2021-04-28 10:17] LABS: INR 1.05 (0.83-1.09); PROTHROMBIN TIME (PATIENT) 12.7 SEC (9.7-13.0)
[2021-04-28 10:20] LABS: ACTIVATED PTT 25.7 SECONDS (25.2-36.5)
[2021-04-28 10:29] LABS: BLOOD UREA NITROGEN 4.3 mg/dL (7-18); CALCIUM 9.1 mg/dL (8.5-10.1)
[2021-04-28 10:33] LABS: CREATININE 0.5 mg/dL (0.55-1.3)
[2021-04-28] MEDS ORDERED: DINOPROSTONE 10 MG VAGINAL SUPPOSITORY VG ONE (10:35)
[2021-04-28 10:52] VITALS: BMI 31.3
[2021-04-28] MEDS: ELECTROLYTE-148 SOLN 1,000 ML IV SCH (16:45)
[2021-04-28] MEDS ORDERED: OXYTOCIN 30 UNITS in 0.9% NS 30 UNIT/500 ML INFUS.BAG IVPB ONE (17:56)
[2021-04-28] MEDS: OXYTOCIN 30 UNITS in 0.9% NS 30 UNIT/500 ML INFUS.BAG IVPB SCH (18:25)
[2021-04-28] MEDS ORDERED: FENTANYL/BUPIVACAINE/NS/PF - PCEA - 50 ML DISP.SYRIN EP ONE (20:08)
[2021-04-28] MEDS ORDERED: PCA PUMP NR ONE (20:08)
[2021-04-28] MEDS ORDERED: BUPIVACAINE HCL/PF 0.25% (2.5MG/ML) 10 ML VIAL ONE (20:53)
[2021-04-28] MEDS: FENTANYL/BUPIVACAINE/NS/PF - PCEA - 50 ML DISP.SYRIN EP SCH (21:25)
[2021-04-28] MEDS ORDERED: NALOXONE HCL 0.4 MG/ML VIAL IVPUSH PRN (21:29)
[2021-04-29] MEDS ORDERED: LIDOCAINE HCL 1% PRESERVATIVE FREE - 30ML VIAL ONE (00:10)
[2021-04-29] MEDS ORDERED: OXYTOCIN 20 UNITS in 0.9% NS 20 UNIT/1,000 ML INFUS.BAG IV ONE ×2 (00:11→03:14)
[2021-04-29] MEDS ORDERED: IBUPROFEN 600 MG TABLET (FP) PO PRN (02:34)
[2021-04-29] MEDS ORDERED: BENZOCAINE 28 GM HEMORRHOIDAL OINTMENT PR PRN (02:34)
[2021-04-29] MEDS ORDERED: METHYLERGONOVINE MALEATE 0.2 MG/1 ML AMP IM PRN (02:34)
[2021-04-29] MEDS ORDERED: WITCH HAZEL 50% (TUCKS) 40 PAD/JAR PAD TP PRN (02:34)
[2021-04-29] MEDS ORDERED: BENZOCAINE 20% 57 GM BOTTLE TP PRN (02:34)
[2021-04-29] MEDS ORDERED: ACETAMINOPHEN 325 MG TABLET (FP) PO PRN (02:34)
[2021-04-29] MEDS ORDERED: BISACODYL 10 MG SUPP.RECT PR PRN (02:34)
[2021-04-29 02:46] LABS: CORD BASE EXCESS -6.7 mmol/L (0-2); CORD HCO3 20.2 mmHg (20-29); CORD HCO3 20.8 mmHg (20-29); CORD PCO2 41.1 mmHg (30-78); CORD PCO2 45.3 mmHg (30-78); CORD pH 7.268 (7.14-7.44); CORD pH 7.322 (7.14-7.44)
[2021-04-29] MEDS ORDERED: OXYTOCIN 20 UNITS in 0.9% NS 20 UNIT/1,000 ML INFUS.BAG IV SCH (03:00)
[2021-04-29] MEDS: ELECTROLYTE-148 SOLN 1,000 ML IV SCH (22:35)
[2021-04-29] MEDS: FENTANYL/BUPIVACAINE/NS/PF - PCEA - 50 ML DISP.SYRIN EP SCH (22:35)
[2021-04-29] MEDS: OXYTOCIN 30 UNITS in 0.9% NS 30 UNIT/500 ML INFUS.BAG IVPB SCH (22:35)
[2021-04-30 08:33] LABS: BASO % 0.3 % (0-2.0); EOS % 2.2 % (0-4.5); HEMATOCRIT 32.2 % (32.4-45.2); HEMOGLOBIN 10.9 GM/dL (10.7-15.3); LYMPH % 23.2 % (8-40); MCH 28.9 pg (25.7-33.7); MCHC 33.8 g/dl (32.0-36.0); MEAN CELL VOLUME 85.7 fl (80-96); MEAN PLT VOLUME 8.8 fl (7.5-11.1); MONO % 7.2 % (3.8-10.2); NEUT % 67.1 % (42.8-82.8); PLATELET COUNT 234 K/MM3 (134-434); RBC 3.76 M/mm3 (3.60-5.2); RDW 13.6 % (11.6-15.6); WHITE BLOOD COUNT 10.4 K/mm3 (4.0-10.0)
[2021-05-01 12:02] VITALS: BP 148/87; PULSE 74; TEMP 98.4
== END 2021-05-01 11:30 | disposition home or self-care (01) | DRG 560 ==
LOC: JLDR 08:35 → J3W 04-29 03:33
PROVIDERS: ADMIT Obstetrics & Gynecology; ATTEND Obstetrics & Gynecology
PROC: 3E0P7VZ Introduction of Hormone into Female Reproductive, Via Natural or Artificial Opening (ICD-10-PCS; principal; 2021-04-28)
PROC: 10E0XZZ Delivery of Products of Conception, External Approach (ICD-10-PCS; 2021-04-29)
PROC: 0W8NXZZ Division of Female Perineum, External Approach (ICD-10-PCS; 2021-04-29)
DX: O99.214 Obesity complicating childbirth (principal); E66.9 Obesity, unspecified; Z3A.39 39 weeks gestation of pregnancy; Z37.0 Single live birth
CPT/HCPCS: 36415; 36600; 59409; 80048; 82803; 85025; 85610; 85730; 86780; 86850; 86900; 86901; C9803; U0003; U0005

== ENCOUNTER 2022-07-29 08:50 | Emergency (ER) | payer OTHER ==
[2022-07-29 08:54] VITALS: TEMP 98.1; BMI 31.7
[2022-07-29] MEDS ORDERED: ONDANSETRON 4 MG/2 ML VIAL IVPUSH ONE (09:26)
[2022-07-29] MEDS ORDERED: morphine CARPU-JECT 2 MG/1 ML DISP.SYRIN IVPUSH ONE (09:26)
[2022-07-29] MEDS ORDERED: SODIUM CHLORIDE 0.9% 500 ML INFUS.BAG IV ONE (09:26)
[2022-07-29] MEDS ORDERED: ONDANSETRON 4 MG/2 ML VIAL ONE (09:33)
[2022-07-29 10:40] LABS: EPI CELLS 6 /uL (0-25.1); HYALINE CASTS 0 /uL (0-3.1); PH,URINE 5.5 (5.0-8.0); URINE APPEARANCE CLEAR; URINE BACTERIA 22 /uL (0-1359); URINE BILIRUBIN NEGATIVE (NEGATIVE); URINE COLOR YELLOW; URINE GLUCOSE (UA) NEGATIVE (NEGATIVE); URINE KETONE NEGATIVE (NEGATIVE); URINE LEUK ESTERASE NEGATIVE (NEGATIVE); URINE NITRITE NEGATIVE (NEGATIVE); URINE PROTEIN NEGATIVE (NEGATIVE); URINE RBC 9 /uL (0-23.9); URINE UROBILINOGEN 0.2 mg/dL (0.2-1.0); URINE WBC 17 /uL (0-25.8)
[2022-07-29 10:43] LABS: HCG,QUALITATIVE URINE Negative
[2022-07-29 10:48] LABS: BASO % 0.4 % (0-2.0); EOS % 0.6 % (0-4.5); HEMATOCRIT 36.4 % (32.4-45.2); HEMOGLOBIN 12.2 GM/dL (10.7-15.3); LYMPH % 22.9 % (8-40); MCH 27.8 pg (25.7-33.7); MCHC 33.5 g/dl (32.0-36.0); MEAN CELL VOLUME 83.1 fl (80-96); MEAN PLT VOLUME 7.9 fl (7.5-11.1); MONO % 5.7 % (3.8-10.2); NEUT % 70.4 % (42.8-82.8); PLATELET COUNT 317 10^3/uL (134-434); RBC 4.38 M/mm3 (3.60-5.2); RDW 14.4 % (11.6-15.6); WHITE BLOOD COUNT 6.6 K/mm3 (4.0-10.0)
[2022-07-29 10:54] LABS: CALCIUM 9.3 mg/dL (8.5-10.1)
[2022-07-29 10:58] LABS: CREATININE 0.8 mg/dL (0.55-1.3)
[2022-07-29 10:59] LABS: BILIRUBIN,TOTAL 0.5 mg/dL (0.2-1); TOT PROT 7.5 g/dl (6.4-8.2)
[2022-07-29 13:15] VITALS: BP 93/62; PULSE 73; RESP 15
== END 2022-07-29 13:40 | disposition home or self-care (01) ==
LOC: JER 08:50
PROC: 3E033NZ Introduction of Analgesics, Hypnotics, Sedatives into Peripheral Vein, Percutaneous Approach (ICD-10-PCS; principal; 2022-07-29)
PROC: 3E033GC Introduction of Other Therapeutic Substance into Peripheral Vein, Percutaneous Approach (ICD-10-PCS; 2022-07-29)
DX: K80.20 Calculus of gallbladder without cholecystitis without obstruction (principal)
CPT/HCPCS: 36415; 76705-TC; 80053; 81003; 83690; 84703; 85025; 87086; 99284-25

== ENCOUNTER 2022-08-04 07:09 | Inpatient (IN) | payer OTHER ==
[2022-08-04] MEDS ORDERED: ONDANSETRON 4 MG/2 ML VIAL IVPUSH ONE (07:49)
[2022-08-04] MEDS ORDERED: ACETAMINOPHEN 1000 MG/100 ML BAG IVPB ONE (07:49)
[2022-08-04] MEDS ORDERED: SODIUM CHLORIDE 1,000 ML IV STA (07:49)
[2022-08-04] MEDS ORDERED: ONDANSETRON 4 MG/2 ML VIAL ONE (08:13)
[2022-08-04] MEDS ORDERED: ACETAMINOPHEN INJECTION 100 ML IVPB ONE (08:13)
[2022-08-04 08:37] LABS: BASO % 0.3 % (0-2.0); EOS % 1.4 % (0-4.5); HEMOGLOBIN 12.7 GM/dL (10.7-15.3); LYMPH % 34.8 % (8-40); MCH 27.9 pg (25.7-33.7); MCHC 33.5 g/dl (32.0-36.0); MEAN CELL VOLUME 83.2 fl (80-96); MEAN PLT VOLUME 7.6 fl (7.5-11.1); MONO % 7.5 % (3.8-10.2); PLATELET COUNT 343 10^3/uL (134-434); RBC 4.57 M/mm3 (3.60-5.2); RDW 14.3 % (11.6-15.6); WHITE BLOOD COUNT 5.5 K/mm3 (4.0-10.0)
[2022-08-04 08:40] LABS: INR 1.1 (0.83-1.09); PROTHROMBIN TIME (PATIENT) 12.7 SEC (9.7-13.0)
[2022-08-04 08:47] LABS: CALCIUM 9.3 mg/dL (8.5-10.1)
[2022-08-04 08:48] LABS: ALBUMIN 4.2 g/dl (3.4-5.0); BLOOD UREA NITROGEN 11.4 mg/dL (7-18)
[2022-08-04 08:51] LABS: CREATININE 0.7 mg/dL (0.55-1.3)
[2022-08-04 08:52] LABS: TOT PROT 8.3 g/dl (6.4-8.2)
[2022-08-04 08:53] LABS: BILIRUBIN,TOTAL 1.1 mg/dL (0.2-1)
[2022-08-04] MEDS ORDERED: morphine CARPU-JECT 4 MG/1 ML DISP.SYRIN IVPUSH ONE (09:10)
[2022-08-04] MEDS ORDERED: morphine SULFATE 4 MG/ML VIAL ONE (09:12)
[2022-08-04 11:30] LABS: EPI CELLS 27 /uL (0-25.1); HYALINE CASTS 6 /uL (0-3.1); PH,URINE 5.5 (5.0-8.0); URINE APPEARANCE CLEAR; URINE BACTERIA 50 /uL (0-1359); URINE BILIRUBIN NEGATIVE (NEGATIVE); URINE COLOR YELLOW; URINE GLUCOSE (UA) NEGATIVE (NEGATIVE); URINE KETONE NEGATIVE (NEGATIVE); URINE LEUK ESTERASE 1+ (NEGATIVE); URINE NITRITE NEGATIVE (NEGATIVE); URINE PROTEIN NEGATIVE (NEGATIVE); URINE RBC 29 /uL (0-23.9); URINE UROBILINOGEN 0.2 mg/dL (0.2-1.0); URINE WBC 89 /uL (0-25.8)
[2022-08-04] MEDS ORDERED: ONDANSETRON 4 MG/2 ML VIAL IVPUSH PRN (16:15)
[2022-08-04] MEDS ORDERED: ACETAMINOPHEN 1000 MG/100 ML BAG IVPB PRN (16:16)
[2022-08-04] MEDS: DEXTROSE 5%-0.45% SALINE 1,000 ML IV SCH (17:45)
[2022-08-04] MEDS: PIPERACILLIN/TAZOB 3.375 GM 3.375 GM in DEXTROSE 5%-WATER - 50 ML IVPB SCH (17:45)
[2022-08-04] MEDS ORDERED: SODIUM CHLORIDE 0.9% 500 ML INFUS.BAG IV ONE (17:46)
[2022-08-05] MEDS: PIPERACILLIN/TAZOB 3.375 GM 3.375 GM in DEXTROSE 5%-WATER - 50 ML IVPB SCH ×3 (02:30→17:17)
[2022-08-05 02:54] VITALS: BMI 30.6
[2022-08-05] MEDS: DEXTROSE 5%-0.45% SALINE 1,000 ML IV SCH ×3 (09:48→16:50)
[2022-08-05] MEDS ORDERED: BUPIVACAINE HCL 100 ML ONE (10:07)
[2022-08-05] MEDS ORDERED: SUCCINYLCHOLINE CHLORIDE 200 MG/10 ML SYRINGE ONE (11:07)
[2022-08-05] MEDS ORDERED: PROPOFOL 20 ML ONE (11:07)
[2022-08-05] MEDS ORDERED: ROCURONIUM BROMIDE 50 MG/5 ML SYRINGE ONE (11:08)
[2022-08-05] MEDS ORDERED: MIDAZOLAM HCL 2 MG/2 ML SINGLE DOSE VIAL ONE (11:08)
[2022-08-05] MEDS ORDERED: ceFAZolin SODIUM 1 GM VIAL ONE (11:29)
[2022-08-05] MEDS ORDERED: ceFAZolin SODIUM 1 GM VIAL IVPB ONE (11:30)
[2022-08-05] MEDS ORDERED: DEXAMETHASONE SOD PHOSPHATE 4 MG/1 ML VIAL ONE (11:53)
[2022-08-05] MEDS ORDERED: ONDANSETRON 4 MG/2 ML VIAL ONE ×2 (11:53→12:35)
[2022-08-05] MEDS ORDERED: KETOROLAC TROMETHAMINE 30 MG/1 ML VIAL ONE (12:00)
[2022-08-05] MEDS ORDERED: BUPIVACAINE HCL/PF 0.5% (5 MG/ML) 30 ML VIAL IJ ONE (12:03)
[2022-08-05] MEDS ORDERED: NEOSTIGMINE METHYLSULFATE 0.5 MG/ML - 10 ML MDV ONE (12:11)
[2022-08-05] MEDS ORDERED: LACTATED RINGERS SOLUTION 1,000 ML IV SCH (12:30)
[2022-08-05] MEDS ORDERED: ONDANSETRON 4 MG/2 ML VIAL IVPUSH PRN ×2 (12:51→13:22)
[2022-08-05] MEDS ORDERED: ACETAMINOPHEN 1000 MG/100 ML BAG IVPB PRN (13:22)
[2022-08-05] MEDS ORDERED: ACETAMINOPHEN 325 MG TABLET (FP) PO PRN (15:15)
[2022-08-05] MEDS ORDERED: oxyCODONE HCL 5 MG TABLET PO PRN (15:15)
[2022-08-05] MEDS: LACTATED RINGERS SOLUTION 1,000 ML IV SCH (16:44)
[2022-08-05] MEDS: KETOROLAC TROMETHAMINE 30 MG/1 ML VIAL IVPUSH SCH (17:10)
[2022-08-05 18:58] VITALS: RESP 18
[2022-08-06] MEDS: KETOROLAC TROMETHAMINE 30 MG/1 ML VIAL IVPUSH SCH ×2 (02:13→15:49)
[2022-08-06 12:30] LABS: BASO % 0.2 % (0-2.0); EOS % 0.1 % (0-4.5); HEMATOCRIT 35.1 % (32.4-45.2); HEMOGLOBIN 11.8 GM/dL (10.7-15.3); LYMPH % 28.5 % (8-40); MCH 27.8 pg (25.7-33.7); MCHC 33.6 g/dl (32.0-36.0); MEAN CELL VOLUME 82.8 fl (80-96); MEAN PLT VOLUME 7.6 fl (7.5-11.1); MONO % 8.6 % (3.8-10.2); NEUT % 62.6 % (42.8-82.8); PLATELET COUNT 299 10^3/uL (134-434); RBC 4.23 M/mm3 (3.60-5.2); RDW 14.2 % (11.6-15.6); WHITE BLOOD COUNT 7.8 K/mm3 (4.0-10.0)
[2022-08-06 13:04] LABS: ALBUMIN 3.4 g/dl (3.4-5.0); BLOOD UREA NITROGEN 8.1 mg/dL (7-18); CREATININE 0.7 mg/dL (0.55-1.3)
[2022-08-06 13:05] LABS: BILIRUBIN,TOTAL 0.8 mg/dL (0.2-1); TOT PROT 6.9 g/dl (6.4-8.2)
[2022-08-06 15:31] VITALS: BP 109/65; PULSE 91; TEMP 98.3
[2022-08-06] MEDS: LACTATED RINGERS SOLUTION 1,000 ML IV SCH (15:50)
[2022-08-06] MEDS: DEXTROSE 5%-0.45% SALINE 1,000 ML IV SCH (15:50)
== END 2022-08-06 17:56 | disposition home or self-care (01) | DRG 263 ==
LOC: JER 07:09 → UNDOADMIN 10:27 → JASUSAT 10:27 → JERBED 10:27 → J2C 16:12 → J5S 21:25
PROVIDERS: ADMIT Internal Medicine; ATTEND Internal Medicine
PROC: 0FT44ZZ Resection of Gallbladder, Percutaneous Endoscopic Approach (ICD-10-PCS; principal; 2022-08-05 11:35)
DX: K80.00 Calculus of gallbladder with acute cholecystitis without obstruction (principal); E66.9 Obesity, unspecified; Z68.30 Body mass index [BMI] 30.0-30.9, adult
CPT/HCPCS: 0241U-QW; 36415; 76705-TC; 80053; 81003; 83690; 84703; 85025; 85610; 86850; 86900; 86901; 87086; 88304-TC; 93005; 93010; 94760; 99285-25

== ENCOUNTER 2023-08-31 16:05 | Emergency (ER) | payer BC, OTHER ==
[2023-08-31 16:17] VITALS: BP 108/63; PULSE 99; RESP 18; TEMP 98.2; BMI 29.3
[2023-08-31] MEDS ORDERED: ONDANSETRON 4 MG/2 ML VIAL IVPUSH ONE (16:50)
[2023-08-31] MEDS ORDERED: SODIUM CHLORIDE 0.9% 500 ML INFUS.BAG IV ONE ×2 (16:50)
[2023-08-31] MEDS ORDERED: ONDANSETRON 4 MG/2 ML VIAL ONE (17:08)
[2023-08-31 17:22] LABS: BASO % 0.6 % (0-2.0); EOS % 1.1 % (0-4.5); HEMATOCRIT 37.2 % (32.4-45.2); HEMOGLOBIN 12.8 GM/dL (10.7-15.3); LYMPH % 36.9 % (8-40); MCH 27.9 pg (25.7-33.7); MCHC 34.5 g/dl (32.0-36.0); MEAN CELL VOLUME 80.9 fl (80-96); MEAN PLT VOLUME 8.6 fl (7.5-11.1); MONO % 8.1 % (3.8-10.2); NEUT % 53.3 % (42.8-82.8); PLATELET COUNT 280 10^3/uL (134-434); RDW 15.1 % (11.6-15.6); WHITE BLOOD COUNT 5.9 K/mm3 (4.0-10.0)
[2023-08-31 17:40] LABS: POTASSIUM 4.6 mmol/L (3.5-5.1)
[2023-08-31 17:43] LABS: CALCIUM 9.6 mg/dL (8.5-10.1)
[2023-08-31 17:45] LABS: ALBUMIN 4.2 g/dl (3.4-5.0); BLOOD UREA NITROGEN 8.3 mg/dL (7-18)
[2023-08-31 17:48] LABS: CREATININE 0.8 mg/dL (0.55-1.3)
[2023-08-31 17:49] LABS: BILIRUBIN,TOTAL 0.7 mg/dL (0.2-1); TOT PROT 8.2 g/dl (6.4-8.2)
[2023-08-31 18:42] LABS: PH,URINE 5.5 (5.0-8.0); URINE APPEARANCE CLEAR; URINE BILIRUBIN NEGATIVE (NEGATIVE); URINE COLOR YELLOW; URINE GLUCOSE (UA) NEGATIVE (NEGATIVE); URINE KETONE NEGATIVE (NEGATIVE); URINE LEUK ESTERASE NEGATIVE (NEGATIVE); URINE NITRITE NEGATIVE (NEGATIVE); URINE PROTEIN NEGATIVE (NEGATIVE); URINE UROBILINOGEN 0.2 mg/dL (0.2-1.0)
[2023-08-31 18:45] LABS: HCG,QUALITATIVE URINE Negative
== END 2023-08-31 21:01 | disposition home or self-care (01) ==
LOC: JER 16:05
PROC: 3E033GC Introduction of Other Therapeutic Substance into Peripheral Vein, Percutaneous Approach (ICD-10-PCS; principal; 2023-08-31)
DX: R19.7 Diarrhea, unspecified (principal); R10.84 Generalized abdominal pain; R11.0 Nausea; R10.32 Left lower quadrant pain; R50.9 Fever, unspecified
CPT/HCPCS: 36415; 80053; 81003; 84703; 85025; 87086; 99284-25